=== PATIENT | male | born 2000 | race Native Hawaiian/Other Pacific Islander ===

== ENCOUNTER 2019-06-14 16:58 | Emergency (ER) | payer SELFPAY ==
--- NOTE | 2019-06-14 17:06 | Emergency Department Report ---
Blank Doc - Documentation Documentation: 18-year-old male that presents with nausea and vomiting. This initial assessment/diagnostic orders/clinical plan/treatment(s) is/are subject to change based on patient's health status, clinical progression and re- assessment by fellow clinical providers in the ED. Further treatment and workup at subsequent clinical providers discretion. Patient/guardians urged not to elope from the ED as their condition may be serious if not clinically assessed and managed. Initial orders include: 1- Patient sent to [facility] for further evaluation and treatment 2- labs 3- XR abd
[2019-06-14 18:00] LABS: Basophils % (Auto) 0.5 % (0.0-1.8); Eosinophils # (Auto) 0.1 K/mm3 (0.0-0.4); Eosinophils % (Auto) 0.8 % (0.0-4.3); Hematocrit 43.6 % (35.5-45.6); Hemoglobin 14.8 gm/dl (11.8-15.2); Lymphocytes # (Auto) 2.1 K/mm3 (1.2-5.4); Lymphocytes % (Auto) 20.6 % (13.4-35.0); Mean Corpuscular HGB Conc 34 % (32-34); Mean Corpuscular Volume 87 fl (84-94); Monocytes # (Auto) 0.7 K/mm3 (0.0-0.8); Monocytes % (Auto) 6.7 % (0.0-7.3); Platelet Count 328 K/mm3 (140-440); Red Blood Count 4.99 M/mm3 (3.65-5.03); Red Cell Distribution Width 13.9 % (13.2-15.2)
[2019-06-14 18:17] LABS: Alanine Aminotransferase 68 units/L (7-56); Albumin 4.4 g/dL (3.9-5); BUN/Creatinine Ratio 10; Blood Urea Nitrogen 9 mg/dL (9-20); Calcium 9.7 mg/dL (8.4-10.2); Hemolysis Index 20
--- NOTE | 2019-06-14 18:18 | XRay Report ---
ACUTE ABDOMINAL SERIES 4 VIEWS INDICATION: n/v. COMPARISON: No relevant prior imaging study available. FINDINGS: No significant abnormality is seen on the included chest radiograph. No free air is seen within the abdomen or pelvis. No dilated loops of small bowel or colon are seen. The stomach appears mildly distended with fluid. IMPRESSION: 1. No radiographic evidence of bowel obstruction. 2. The stomach is mildly distended with fluid which could be seen in the setting of gastritis/gastroe nteritis, correlate clinically. Signer Name: Jamel Lomax MD Signed: 06/14/2019 6:14 PM Workstation Name: [id number]
[2019-06-14] MEDS ORDERED: ONDANSETRON 4 MG ODT TAB PO ONE (20:00)
[2019-06-14] MEDS ORDERED: FAMOTIDINE 20 MG TAB PO ONE (20:00)
[2019-06-14 20:14] LABS: Bilirubin,Urine NEG (Negative); Blood,Urine NEG (Negative); Color,Urine Yellow (Yellow); Mucus,Urine FEW /HPF; Protein,Urine <15 mg/dL mg/dL (Negative); Urobilinogen,Urine < 2.0 mg/dL (<2.0)
[2019-06-14 21:21] VITALS: BP 128/71
[2019-06-14] MEDS ORDERED: LIDOCAINE-MPF (1%) 10 MG/1 ML VIAL 5 ML INFILTRATI ONE (21:31)
[2019-06-14] MEDS ORDERED: AZITHROMYCIN 250 MG TAB PO ONE (21:31)
--- NOTE | 2019-06-14 21:31 | Emergency Department Report ---
ED N/V/D HPI - General Chief complaint: Nausea/Vomiting/Diarrhea Stated complaint: V/N Time Seen by Provider: 06/14/19 17:05 Source: patient Mode of arrival: Ambulatory Limitations: No Limitations - History of Present Illness Initial comments: Patient is a 18-year-old male with no past medical history who presents to the ED with complaint of acute onset persistent intermittent nausea and vomiting for the last 2 days. Patient also complains of penile discharge. Patient denies dizziness, chest pain, shortness of breath, headache, abdominal pain, dysuria, sore throat, diarrhea, fever, chills, headache, hematuria, hematemesis, hematochezia or constipation. MD complaint: nausea, vomiting -: Sudden, days(s) (2) Description of Vomiting: food contents, watery Description of Diarrhea: other (No diarrhea) Associated Abdominal Pain: No Location: diffuse Radiation: none Severity: moderate Quality: aching, dull Consistency: intermittent Improves with: none Worsens with: eating Associated Symptoms: denies other symptoms, loss of appetite, malaise, nausea/vomiting. denies: myalgias, chest pain, cough, diaphoresis, f ever/chills, headaches, rash, dysuria, shortness of breath, syncope, weakness - Related Data Previous Rx's Medication Instructions Recorded Last Taken Type Famotidine [Pepcid] 20 mg PO Q12H #60 tablet 06/14/19 Unknown Rx Ondansetron [Zofran Odt] 4 mg PO Q6HR PRN #20 tab.rapdis 06/14/19 Unknown Rx Sulfamethoxazole/Trimethoprim 1 each PO Q12H #20 tablet 06/14/19 Unknown Rx [Bactrim DS TAB] Allergies Allergy/AdvReac Type Severity Reaction Status Date / Time No Known Allergies Allergy Unverified 06/14/19 17:02 ED Review of Systems ROS: Stated complaint: V/N Other details as noted in HPI Constitutional: denies: chills, fever Eyes: denies: eye pain, eye discharge, vision change ENT: denies: ear pain, throat pain Respiratory: denies: cough, shortness of breath, wheezing Cardiovascular: denies: chest pain, palpitations Endocrine: no symptoms reported Gastrointestinal: nausea, vomiting. denies: abdominal pain, diarrhea Genitourinary: discharge. denies: urgency, dysuria, frequency, hematuria, testicular pain, testicular mass Musculoskeletal: denies: back pain, joint swelling, arthralgia Skin: denies: rash, lesions Neurological: denies: headache, weakness, paresthesias Psychiatric: denies: anxiety, depression Hematological/Lymphatic: denies: easy bleeding, easy bruising ED Past Medical Hx - Past Medical History Previous Medical History?: Yes - Surgical History Past Surgical History?: No - Social History Smoking Status: Never Smoker Substance Use Type: None - Medications Home Medications: Home Medications Medication Instructions Recorded Confirmed Last Taken Type Famotidine [Pepcid] 20 mg PO Q12H #60 tablet 06/14/19 Unknown Rx Ondansetron [Zofran Odt] 4 mg PO Q6HR PRN #20 tab.rapdis 06/14/19 Unknown Rx Sulfamethoxazole/Trimethoprim 1 each PO Q12H #20 tablet 06/14/19 Unknown Rx [Bactrim DS TAB] ED Physical Exam - General Limitations: No Limitations General appearance: alert, in no apparent distress - Head Head exam: Present: atraumatic, normocephalic, normal inspection - Eye Eye exam: Present: normal appearance, PERRL, EOMI Pupils: Present: normal accommodation - ENT ENT exam: Present: normal exam, normal orophraynx, mucous membranes moist, TM's normal bilaterally, normal external ear exam - Neck Neck exam: Present: normal inspection, full ROM - Respiratory Respiratory exam: Present: normal lung sounds bilaterally. Absent: respiratory distress, wheezes, chest wall tenderness, accessory muscle use, decreased breath sounds - Cardiovascular Cardiovascular Exam: Present: normal rhythm, tachycardia. Absent: systolic mu rmur, diastolic murmur, rubs, gallop - GI/Abdominal GI/Abdominal exam: Present: soft, normal bowel sounds. Absent: tenderness, guarding, hyperactive bowel sounds, hypoactive bowel sounds - exam: Present: normal inspection. 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 Absent: muscle spasm, paraspinal tenderness - Neurological Exam Neurological exam: Present: alert, oriented X3, CN II-XII intact, normal gait, reflexes normal - Psychiatric Psychiatric exam: Present: normal affect, normal mood - Skin Skin exam: Present: warm, dry, intact, normal color. Absent: rash ED Course Vital Signs 06/14/19 06/14/19 17:05 21:19 Temperature 97.5 F L 97.9 F Pulse Rate 115 H 92 H Respiratory 18 18 Rate Blood Pressure 153/79 Blood Pressure 128/71 [Right] O2 Sat by Pulse 96 98 Oximetry ED Medical Decision Making - Lab Data Result diagrams: 06/14/19 17:45 06/14/19 17:45 - Medical Decision Making This is a 18-year-old male who presented to the ED with persistent nausea and vomiting for 2 days. In the ED, patient is alert and oriented 3 and is in no distress but anxious and tachycardic in triage. Lab test results were reviewed and on actionable except urinalyses that showed significant urinary tract infection which in male patient of this age is suspicious for STD. Patient did had complained of penile discharge. Patient was treated for nausea and vomiting in the ED, also treated in the ED and empirically for chlamydia and gonorrhea. On reevaluation, patient's of acute oral medications and fluids with no nausea or vomiting in the ED. Patient was discharged home on medications and advised to follow-up with [facility] for further testing of other STDs. Patient was also advised to inform his sexual partner of his diagnosis and treatment. Patient was advised to return to the ED immediately if symptoms get worse. - Differential Diagnosis Gastroenteritis; GERD; UTI; STD; Gallstones Critical care attestation.: If time is entered above; I have spent that time in minutes in the direct care of this critically ill patient, excluding procedure time. ED Disposition Clinical Impression: Nausea and vomiting in adult, Acute urinary tract infection, Urethritis, u nspecified Disposition: DC-01 TO HOME OR SELFCARE Is pt being admited?: No Does the pt Need Aspirin: No Condition: Stable Instructions: Nonspecific Urethritis in Men (ED), Sexually Transmitted Diseases (ED), Acute Nausea and Vomiting (ED) Additional Instructions: Maintain a clear liquid diet for 12-24 hours, take medications and follow up with [facility] for further evaluation. Return to the ED immediately if symptoms get worse. Prescriptions: Sulfamethoxazole/Trimethoprim [Bactrim DS TAB] 1 each PO Q12H #20 tablet Famotidine [Pepcid] 20 mg PO Q12H #60 tablet Ondansetron [Zofran Odt] 4 mg PO Q6HR PRN #20 tab.rapdis PRN Reason: Nausea Referrals: [facility] Depart [Outside] - 3-5 Days Forms: STI Treatment and Prevention Time of Disposition: 22:08 Print Language: SAMMARINESE
== END 2019-06-14 22:42 | disposition home or self-care (01) ==
LOC: ED 16:58
DX: N39.0 Urinary tract infection, site not specified (principal); N34.2 Other urethritis; Z79.899 Other long term (current) drug therapy
CPT/HCPCS: 36415; 74022; 80053; 81001; 83690; 85025; 87086; 96372; 99284; J0696; Q0162